=== PATIENT | female | born 1980 ===

== ENCOUNTER 2017-05-27 09:28 | Emergency (ER) | payer MEDICAID, OTHER ==
[2017-05-27 09:40] VITALS: O2SAT 100; BMI 33.0
--- NOTE | 2017-05-27 10:40 | ED PDOC ---
Lower Extremity Pain/Injury Time Seen by Provider: 05/27/17 09:48 Chief Complaint (Nursing): Lower Extremity Problem/Injury Chief Complaint (Provider): Right ankle pain History Per: Patient History/Exam Limitations: no limitations Onset/Duration Of Symptoms: Days (3) Current Symptoms Are (Timing): Still Present Additional Complaint(s): Patient is a 36 y/o female with no significant past medical history presenting to the emergency department for mild right ankle pain x3 days. Reports that while she was walking outside, she tripped on something and sprained her right ankle. She noted swelling the next day. Reports taking Advil with no significant relief of symptoms (and with increase in swelling). Denies fall, other injuries, or other complaints. PCP: Dr. Scooby Le Past Medical History Reviewed: Historical Data, Nursing Documentation, Vital Signs Vital Signs: Last Vital Signs Temp 98.1 F 05/27/17 09:39 Pulse 73 05/27/17 09:39 Resp 20 05/27/17 09:39 BP 115/80 05/27/17 09:39 Pulse Ox 100 05/27/17 09:39 - Medical History PMH: No Chronic Diseases - Surgical History Surgical History: - Family History Family History: States: Unknown Family Hx - Social History Current smoker - smoking cessation education provided: No Ex-Smoker (has not smoked in the last 12 months): No Alcohol: None Drugs: Denies - Home Medications Home Medications: Ambulatory Orders Medication Instructions Recorded Doxycycline [Adoxa] 100 mg PO BID 14 Days 06/19/15 Ibuprofen [Motrin] 600 mg PO Q6 #20 tab 05/27/17 - Allergies Allergies/Adverse Reactions: Allergies Allergy/AdvReac Type Severity Reaction Status Date / Time No Known Allergies Allergy Verified 05/20/15 14:51 Review of Systems ROS Statement: Except As Marked, All Systems Reviewed And Found Negative Musculoskeletal: Positive for: Foot Pain (right ankle) Physical Exam - Reviewed Nursing Documentation Reviewed: Yes Vital Signs Reviewed: Yes - Physical Exam Appears: Positive for: Non-toxic, No Acute Distress. Negative for: Uncomfortable Head Exam: Positive for: ATRAUMATIC, NORMAL INSPECTION, NORMOCEPHALIC Skin: Positive for: Normal Color, Warm, Dry Eye Exam: Positive for: Normal appearance Respiratory: Negative for: Accessory Muscle Use, Respiratory Distress Pulses-Dorsalis Pedis (R): 2+ Pulses-Post. Tibialis (R): 2+ Extremity: Positive for: Normal ROM (right ankle), Tenderness (Right ankle lateral malleolus tenderness and swelling. Foot dorsum tenderness.), Other ( skin normal). Negative for: Deformity Neurologic/Psych: Positive for: Alert, Oriented (x3) - ECG O2 Sat by Pulse Oximetry: 100 (RA) Pulse Ox Interpretation: Normal Medical Decision Making Medical Decision Making: Time: 10:02 Initial impression: Right ankle injury. Differential diagnoses include but not limited to foot sprain and ankle fracture. Initial plan: Right ankle x-ray Right foot x-ray Reevaluation 11:00 Right ankle x-ray viewed by me. No acute findings. 11:11 Spoke with podiatry in regards to foot x-ray. 12:27 Right foot x-ray reviewed. Findings noted as follows: BONES: Normal. No fracture. JOINTS: Normal. SOFT TISSUES: Normal. OTHER FINDINGS: None. IMPRESSION: No acute findings related to/accounting for the clinical presentation. 14:57 CT lower extremity scan reviewed. Findings noted as follows: There is no evidence of fracture dislocation. No Lisfranc injury is suggested. There is lateral malleolar soft tissue swelling. The ankle mortise and subtalar joint appears intact. IMPRESSION: Lateral ankle sprain. No evidence of Lisfranc injury. 15:[address] Mckeon. Foot splinted by podiatry. Patient will follow up with Dr. Mckeon in office. Scribe Attestation: Documented by Mag Chavez, acting as a scribe for Boni Nguyen MD. Provider Scribe Attestation: All medical record entries made by the Scribe were at my direction and personally dictated by me. I have reviewed the chart and agree that the record accurately reflects my personal performance of the history, physical exam, medical decision making, and the department course for this patient. I have also personally directed, reviewed, and agree with the discharge instructions and disposition. Disposition - Clinical Impression Clinical Impression: Ankle sprain, Foot sprain - Patient ED Disposition Is Patient to be Admitted: No Doctor Will See Patient In The: Office Counseled Patient/Family Regarding: Studies Performed, Diagnosis, Need For Followup - Disposition Referrals: Podiatry Clinic [Outside] Disposition: Routine/Home Disposition Time: 15:16 Condition: GOOD Additional Instructions: Take advil for pain. Follow up with your PCP in 2-3 days. Prescriptions: Ibuprofen [Motrin] 600 mg PO Q6 #20 tab Instructions: Ankle Sprain (ED), Foot Sprain (ED)
--- NOTE | 2017-05-27 12:29 | RAD ---
PROCEDURE: Right Foot Radiographs. HISTORY: Pain. No history of recent/ related trauma provided COMPARISON: None. FINDINGS: BONES: Normal. No fracture. JOINTS: Normal. SOFT TISSUES: Normal. OTHER FINDINGS: None. IMPRESSION: No acute findings related to/accounting for the clinical presentation. No preliminary report provided by emergency department personnel.
--- NOTE | 2017-05-27 12:29 | RAD ---
PROCEDURE: Right Ankle Radiographs. HISTORY: ankle pain swelling injury COMPARISON: None FINDINGS: BONES: Normal. No fracture. JOINTS: Normal. No osteoarthritis. Ankle mortise maintained. Talar dome intact SOFT TISSUES: Posterior lateral soft tissue swelling without evidence of fracture. OTHER FINDINGS: None. IMPRESSION: Soft tissue swelling without acute articular or osseous abnormality. No preliminary report provided by emergency department personnel.
--- NOTE | 2017-05-27 13:47 | CP.PCM.CON ---
History of Present Illness - History of Present Illness History of Present Illness: 36 y/o female seen in the ED by podiatry for right ankle injury. Patient states she fell two days ago and twisted the ankle. Patient states the pain was ok at first but since she has had significant trouble bearing weight or walking on it. Patient admits to taking Ibuprofen for pain but that it did not help significantly. Pt denies any significant PMH or PSH. Pt denies any allergies. Pt denies F/C/N/V/SOB. Review of Systems - Review of Systems All systems: reviewed and no additional remarkable complaints except (per HPI) Past Patient History - Infectious Disease Hx of Infectious Diseases: None - Past Social History Alcohol: None Drugs: Denies - GENITOURINARY/GYNECOLOGICAL Other/Comment: CD x 3 - PSYCHIATRIC Hx Substance Use: No Other/Comment: Anxiety - SURGICAL HISTORY Hx Section: Yes - ANESTHESIA Hx Anesthesia: Yes Hx Anesthesia Reactions: No Meds Home Medications: Home Medication List Medication Instructions Recorded Confirmed Type Ibuprofen [Motrin] 600 mg PO Q6 #20 tab 05/27/17 Rx Allergies/Adverse Reactions: Allergies Allergy/AdvReac Type Severity Reaction Status Date / Time No Known Allergies Allergy Verified 05/20/15 14:51 Physical Exam - Constitutional Appears: Well, Non-toxic, No Acute Distress - Extremities Exam Additional comments: RLE focused examination: Vasc: DP/PT pulses 2/4. Temperature gradient warm to cool. Non-pitting edema noted to lateral malleolar region. CFT < 3 sec to all digits Neuro: Protective sensation grossly intact Derm: No erythema or ecchymosis at lateral ankle or dorsum of midfoot. No open lesions. Ortho: Tenderness elicited to lateral malleolar area and dorsum of midfoot upon active and passive ankle inversion, dorsiflexion, and plantarflexion. Tenderness to palpation of dorsum of midfoot and lateral ankle. - Neurological Exam Neurological exam: Alert, Oriented x3 - Psychiatric Exam Psychiatric exam: Normal Affect, Normal Mood Results - Vital Signs Recent Vital Signs: Last Vital Signs Temp 98.1 F 05/27/17 09:39 Pulse 68 05/27/17 11:07 Resp 20 05/27/17 09:39 BP 115/80 05/27/17 09:39 Pulse Ox 100 05/27/17 11:53 Assessment & Plan - Assessment and Plan (Free Text) Assessment: 36 y/o female with right ankle sprain and midfoot sprain Plan: Pt seen and evaluated in ED Discussed plan with attending Dr. Mckeon X-rays inconclusive for midfoot metatarsal base fracture, possible cuneiform or Lisfranc injury, warranting further imaging Ordered CT scan of RLE: lateral ankle sprain; no evidence of Lisfranc injury Rizo compressive dressing applied to RLE Dispensed crutches to patient and instructed her to remain NWB until follow up visit Pt to follow up at Dr. Mckeon's office in [place]
--- NOTE | 2017-05-27 14:58 | CT ---
PROCEDURE: HISTORY: right foot injury lisfranc? COMPARISON: TECHNIQUE: FINDINGS: There is no evidence of fracture dislocation. No Lisfranc injury is suggested. There is lateral malleolar soft tissue swelling. The ankle mortise and subtalar joint appears intact. IMPRESSION: Lateral ankle sprain. No evidence of Lisfranc injury.
[2017-05-27 15:36] VITALS: BP 120/72; PULSE 16; RESP 16; TEMP 98
== END 2017-05-27 15:37 | disposition home or self-care (01) ==
LOC: H.ER 09:28
DX: W18.40XA Slipping, tripping and stumbling without falling, unspecified, initial encounter (principal); Y93.01 Activity, walking, marching and hiking; Z87.891 Personal history of nicotine dependence

== ENCOUNTER 2019-01-28 01:34 | Emergency (ER) | payer MEDICAID ==
[2019-01-28 01:34] VITALS: BMI 33.0
[2019-01-28 02:37] VITALS: BP 132/76; PULSE 94; RESP 18; TEMP 98.5; O2SAT 99
== END 2019-01-28 03:05 | disposition left against medical advice (07) ==
LOC: H.ER 01:34
DX: Z02.89 Encounter for other administrative examinations (principal)